=== PATIENT | male | born 1930 | race Caucasian/White ===

== ENCOUNTER 2016-10-29 03:46 | Emergency (ER) | payer MEDICARE ==
[2016-10-29] MEDS ORDERED: FENTANYL 100 MCG/2 ML VIAL ONE (04:09)
[2016-10-29] MEDS ORDERED: MIDAZOLAM HCL 2 MG/2 ML VIAL ONE (04:49)
--- NOTE | 2016-10-29 04:56 | RADIOLOGY REPORT ---
HISTORY: Right hip injury COMPARISON: None. FINDINGS: 2 views of the right hip(s) and pelvis obtained. 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 There is s uperior and posterior dislocation of the right hip prosthesis. No acute fracture is seen. 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 Final Electronic Signature: This report was electronically signed by Fercho Ring MD on 10/29/2016 4: 53 AM. [email or web address] /
--- NOTE | 2016-10-29 05:29 | RADIOLOGY REPORT ---
HISTORY: Post reduction COMPARISON: Right hip and pelvis radiographs October 29, 2016. FINDINGS: 2 views of the right hip(s) and pelvis obtained. Previously seen dislocated right total hip prosthesi s has been reduced and is now in expected alignment. No fracture is seen. IMPRESSION: Interval reduction of previously dislocated right total hip prosthesis. No fracture. Final Electronic Signature: This report was electronically signed by Fecrho Ring MD on 10/29/2016 5: 27 AM. [email or web address] /
--- NOTE | 2016-10-29 05:48 | ER PHYSICIAN DOCUMENTATION ---
Physician Documentation [facility] Name:Fred Can Age:86 yrs Sex:Male :1930 Arrival Date:10/29/2016 Time:03:46 BedTrauma-A Private MD:Shazia Colbert ED, Scott Disposition: 10/29/16 04:51 Discharged to Home/Self Care. Impression: Dislocation of Hip. - Condition is Good. - Discharge Instructions: After Care - HIP REPLACEMENT, Dislocation, Reduced. - Medical Reconciliation form form. - Follow up: Russel Perkins DO, Chip Merlos MD; When: 1 week; Reason: Recheck today's complaints. - Problem is new. - Symptoms are resolved. HPI: 10/29 04:02 This 86 yrs old Male presents to ER via EMS with complaints of Hip Pain. sc 04:02 The patient or guardian reports deformity, possible dislocation. that occurred at home, sc sustained from sitting down, the right leg is internally rotated. The complaints affect the right hip. Onset: The symptom(s)/episode began/occurred just prior to arrival. Modifying factors: the symptoms are aggravated by any movement. Associated signs and symptoms: Loss of consciousness: the patient experienced no loss of consciousness, Pertinent positives: None. The patient has experienced similar episodes in the past, several times. Historical: - Allergies: No known drug Allergies; - Home Meds: 1. Vicodin ES Oral - PMHx: None; - PSHx: Cholecysectomy; Hip surgery; - Tetanus: > 10 years. - Ebola Screening: : Patient denies exposure to infectious person. Patient denies travel to an Ebola-affected area in the 21 days before illness onset. . - Immunization history: Flu Vaccine None. - Social history: Smoking status: Patient states was never smoker of tobacco. Patient/guardian denies using alcohol. ROS: 04:03 Constitutional: Negative for fever, chills, and weight loss. sc Eyes: Negative for injury, pain, redness, and discharge. ENT: Negative for injury, pain, and discharge. Neck: Negative for injury, pain, and swelling. Back: Negative for injury and pain. Skin: Negative for injury, rash, and discoloration. 04:03 Neuro: Negative for headache, weakness, numbness, tingling, and seizure. sc 04:03 MS/extremity: Positive for injury or acute deformity, pain, Negative for contusion, swelling, tenderness, tingling. Exam: Constitutional: This is a well developed, well nourished patient who is awake, alert, and in no acute distress. Head/Face: Normocephalic, atraumatic. Neck: Trachea midline, no thyromegaly or masses palpated, and no cervical lymphadenopathy. Supple, full range of motion without nuchal rigidity, or vertebral point tenderness. No meningismus. Cardiovascular: Regular rate and rhythm with a normal S1 and S2. No gallops, murmurs, or rubs. Normal PMI, no JVD. No pulse deficits. Respiratory: Lungs have equal breath sounds bilaterally, clear to auscultation and percussion. No rales, rhonchi or wheezes noted. No increased work of breathing, no retractions or nasal flaring. 04:04 Neuro: Awake and alert, GCS 15, oriented to person, place, time, and situation. il Cranial nerves II-XII grossly intact. Motor strength 5/5 in all extremities. Sensory grossly intact. Cerebellar exam normal. Normal gait. 04:04 Musculoskeletal/extremity: Extremities: grossly normal except: deformity, Circulation is intact in all extremities. Sensation intact. Vital Signs: 04:01 BP 129 / 56; Pulse 81; Resp 21; Temp 99(TE); Pulse Ox 97% on R/A; Weight 83.91 kg; lb Height 5 ft. 6 in. (167.64 cm); Pain 8/10; 04:54 BP 108 / 59; Pulse 73; Resp 14; Pulse Ox 91% on R/A; lb 05:46 BP 110 / 72; Pulse 70; Resp 20; Pulse Ox 93% on R/A; Pain 0/10; lb 04:01 Body Mass Index 29.86 (83.91 kg, 167.64 cm) lb Procedures: 04:49 Reduction: of the right hip, using traction, manipulation, Immobilized with OCL splint, il Patient tolerated well. Post reduction film - reveals improved alignment. MDM: 03:50 Patient medically screened. il 04:50 Differential diagnosis: dislocated hip, patient refused knee immobilizer. Data il reviewed: vital signs, nurses notes, radiologic studies, plain films, and as a result, I will discharge patient. Counseling: I had a detailed discussion with the patient and/or guardian regarding: the historical points, exam findings, and any diagnostic results supporting the discharge/admit diagnosis, radiology results, the need for outpatient follow up, for a referral to a specialist. Response to treatment: the patient's symptoms have resolved after treatment, the patient's condition has returned to base line. 10/29 04:57 Order name: HIP;W/PEL 2-3 [place] [id number]; Complete Time: 05:12 EDMS 10/29 05:12 Interpretation: Abnormal. il 10/29 05:31 Order name: HIP;W/PEL 2-3 [place] [id number] EDMS Dispensed Medications: 04:01 Drug: fentaNYL (PF) 100 mcg; Route: IVP; Infused Over: 3 mins; Site: right hand; lb 04:52 Follow up: Response: Pain is unchanged, physician notified lb 04:39 Drug: Versed 3 mg; Route: IVP; Site: right hand; lb 04:52 Follow up: Response: Pain is decreased lb Signatures: Fredy Renae MD MD il Shannon Flowers
--- NOTE | 2016-10-29 05:48 | ER NURSING DOCUMENTATION ---
Nurse's Notes [facility] Name:Fred Can Age:86 yrs Sex:Male :1930 Arrival Date:10/29/2016 Time:03:46 BedTrauma-A Private MD:Shazia Colbert Diagnosis:Dislocation of Hip Presentation: 10/29 03:52 Presenting complaint: EMS states: right leg gave out tonight, possible dislocation--hx lb of same. Transition of care: Home. Notified ED Physician of Dr. Renae notified. 03:52 Acuity: LUCINDA 3 lb 03:52 Method Of Arrival: EMS: 410 lb Triage Assessment: 03:53 General: Appears uncomfortable, Behavior is appropriate for age, pleasant. Pain: lb Complains of pain in right hip Pain does not radiate. Pain currently is 8 out of 10 on a pain scale. Neuro: Level of Consciousness is awake, alert, Oriented to person, place, time, event. Cardiovascular: No deficits noted. Respiratory: No deficits noted. GI: No deficits noted. : No deficits noted. Derm: No deficits noted. Historical: - Allergies: No known drug Allergies; - Home Meds: 1. Vicodin ES Oral - PMHx: None; - PSHx: Cholecysectomy; Hip surgery; - Tetanus: > 10 years. - Ebola Screening: : Patient denies exposure to infectious person. Patient denies travel to an Ebola-affected area in the 21 days before illness onset. . - Immunization history: Flu Vaccine None. - Social history: Smoking status: Patient states was never smoker of tobacco. Patient/guardian denies using alcohol. Screenin:03 Infectious Disease Risk None. Abuse screen: Denies threats or abuse. Denies injuries lb from another. Nutritional screening: No deficits noted. Assessment: 04:02 General: Appears uncomfortable, Behavior is appropriate for age, pleasant. Pain: lb Complains of pain in right hip Pain does not radiate. Pain currently is 8 out of 10 on a pain scale. Neuro: No deficits noted. EENT: No deficits noted. Cardiovascular: No deficits noted. Respiratory: No deficits noted. 05:45 Reassessment: right hip reduced by MD. pt tolerated well with relief of paIN AND FULL lb RANGE OF MOTION. Vital Signs: 04:01 BP 129 / 56; Pulse 81; Resp 21; Temp 99(TE); Pulse Ox 97% on R/A; Weight 83.91 kg; lb Height 5 ft. 6 in. (167.64 cm); Pain 8/10; 04:54 BP 108 / 59; Pulse 73; Resp 14; Pulse Ox 91% on R/A; lb 05:46 BP 110 / 72; Pulse 70; Resp 20; Pulse Ox 93% on R/A; Pain 0/10; lb 04:01 Body Mass Index 29.86 (83.91 kg, 167.64 cm) lb ED Course: 03:47 Patient arrived in ED. jt 03:47 Shazia Colbert MD is Private Physician. jt 03:50 Fredy Renae MD is Attending Physician. sc 03:52 Shannon Flowers is Primary Nurse. lb 03:53 Triage completed. lb 04:04 Valuables Remains with patient Patient has correct armband on for positive lb identification. Bed in low position. Side rails up X2. 04:34 Port Xray Completed. mr 04:51 Russel Perkins DO, Chip Merlos MD is Referral Physician. sc 05:16 Port Xray Completed. mr 05:44 Assist Provider Assist provider with reduction of right pathologic or non traumatic hip lb using manipulation, Set up for procedure. Performed by Fredy Renae MD Patient tolerated well. Maintain field IV. Dressing intact. Site clean & dry. Administered Medications: 04:01 Drug: fentaNYL (PF) 100 mcg; Route: IVP; Infused Over: 3 mins; Site: right hand; lb 04:52 Follow up: Response: Pain is unchanged, physician notified lb 04:39 Drug: Versed 3 mg; Route: IVP; Site: right hand; lb 04:52 Follow up: Response: Pain is decreased lb Outcome: 04:51 Discharge ordered by . sc 05:46 Discharged to home ambulatory. lb 05:46 Condition: stable 05:46 Discharge Assessment: Patient awake, alert and oriented x 3. No cognitive and/or functional deficits noted. Patient verbalized understanding of disposition instructions. 05:46 Instructed on discharge instructions, follow up and referral plans. 05:46 IV D/Jaime 05:47 Patient left the ED. lb 07 16:48 Discharge F/U Call: Spoke with: patient. Are you having any pain? no. Did your lc discharge instructions answer all of your questions? yes Overall Care on a scale of 1-10 with 10 being the best care, you rate our care as: Other comments: DOING FINE, NO PROBLEMS Signatures: Katherin Barrow RN RN lc Chew, Scott, MD MD sc Tennant, Shannon Sparks Michael mr
== END 2016-10-29 05:48 | disposition home or self-care (01) ==
LOC: ER 03:46
DX: T84.020A Dislocation of internal right hip prosthesis, initial encounter (principal); Z96.641 Presence of right artificial hip joint; Z79.899 Other long term (current) drug therapy; Z74.3 Need for continuous supervision
CPT/HCPCS: 96374; 96375; 99284; A0425; A0429; J2250; J3010